=== PATIENT | female | born 1990 | race Caucasian/White ===

== ENCOUNTER 2018-09-30 19:52 | Emergency (ER) | payer MEDICAID ==
--- NOTE | 2018-09-30 20:29 | EDM.PDOC ---
ED HPI GENERAL MEDICAL PROBLEM - General Chief Complaint: Head Injury Stated Complaint: PASSED OUT,FELL DOWN STAIRS Time Seen by Provider: 09/30/18 20:19 Source of Information: Reports: Patient, Family, RN Notes Reviewed History Limitations: Reports: No Limitations - History of Present Illness INITIAL COMMENTS - FREE TEXT/NARRATIVE: 28-year-old female presents emergency department today complaint of syncopal event, she was seated at the stop the stairs, stood up and felt lightheaded and fell down the stairs landing on her chin. Witnesses say following this event she had shaking both upper and lower extremities was confused for a short time or regaining awareness. At this time she complains of jaw and having a headache. She has no family history no personal history of seizure like activity headache Pain Score (Numeric/FACES): 3 - Related Data Allergies Allergy/AdvReac Type Severity Reaction Status Date / Time No Known Allergies Allergy Verified 09/30/18 20:02 Home Meds: Home Meds NK [No Known Home Meds] 09/30/18 [History] Past Medical History HEENT History: Reports: Impaired Vision Cardiovascular History: Reports: Syncope [employer]ENDANT History: Reports: - Infectious Disease History Infectious Disease History: Reports: Chicken Pox - Past Surgical History HEENT Surgical History: Reports: Oral Surgery GI Surgical History: Reports: Cholecystectomy Female Surgical History: Reports: Section Social & Family History - Tobacco Use Smoking Status *Q: Never Smoker - Caffeine Use Caffeine Use: Reports: Coffee, Soda - Recreational Drug Use Recreational Drug Use: No ED ROS GENERAL - Review of Systems Review Of Systems: See Below Constitutional: Reports: No Symptoms HEENT: Reports: No Symptoms Respiratory: Reports: No Symptoms Cardiovascular: Reports: Syncope GI/Abdominal: Reports: No Symptoms Musculoskeletal: Reports: No Symptoms Skin: Reports: No Symptoms Neurological: Reports: Headache ED EXAM, HEAD INJURY - Physical Exam Exam: See Below Text/Narrative:: General: Female, not in any distress, alert and oriented x3 HEENT: head is slight erythema is appreciated on the right side of the chin normocephalic, eyes pupils equal round reactive to light, sclera clear no conjunctivitis appreciated extraocular eye movements intact. Ears tympanic membranes clear and dorantes landmarks and light reflex are present bilaterally canals are clear. Nose no septal deviation, nares are clear, no blood present. Mouth mucosa is moist and pink no erythema or exudate noted in soft palate, tongue is midline uvula is midline, dentition is intact. Neck: Supple no thyromegaly no tracheal deviation. Nodes: Cervical nodes subclavicular nodes nontender no palpable lymphadenopathy noted. NO posterior midline C-spine tenderness NO evidence of intoxication GCS > 14 No focal neurological deficit NO distracting injury Lungs: clear to auscultation bilaterally with symmetrical respirations, no adventitious noise appreciated. CV: Regular rate and rhythm S1 and S2 appreciated no murmurs rubs or gallops noted. Abdomen: Soft, nontender, no palpable masses or organomegaly appreciated, no distention no guarding bowel sounds are present, . Neuro: Cranial nerves II test with pupillary light reflex 4 mm to 2 mm bilaterally, CN III test pupillary constriction, limited elevation and eye abduction bilaterally, CN IV downward movement of eyes bilaterally, CN V good jaw movement, CN lateral deviation of the eyes bilaterally to finger movement , CN VII symmetrical smile shows teeth without difficulty, CN VIII pass finger rub to ears bilaterally, CN IX adequate voice and tone, CN X adequate voice and tone no difficulty swallowing, CN XI can shrug shoulders without difficulty, CN XII can stick tongue out without difficulty, cranial nerves II to XII intact as tested, Skin: Warm and dry, intact Extremities: No lower extremity edema appreciated, . Course - Vital Signs Last Recorded V/S: Last Vital Signs Temp 96.7 F 09/30/18 20:08 Pulse 77 09/30/18 20:08 Resp 15 09/30/18 20:08 BP 134/70 09/30/18 20:08 Pulse Ox 98 09/30/18 20:08 - Orders/Labs/Meds Orders: Active Orders 24 hr Category Date Time Status EKG Documentation Completion [RC] ASDIRECTED Care 09/30/18 20:26 Active EKG 12 Lead [EK] Stat Ther 09/30/18 20:25 Ordered Departure - Departure Time of Disposition: 23:02 Disposition: Home, Self-Care 01 Condition: Fair Clinical Impression: Head injury Qualifiers: Encounter type: initial encounter Qualified Code(s): S09.90XA - Unspecified injury of head, initial encounter - Discharge Information Referrals: PCP,None [Primary Care Provider] - Forms: ED Department Discharge Additional Instructions: Use Tylenol or Motrin as needed for pain control, Please followup with your primary care provider in 3-5 days if not better, please call return to the emergency department with worsening of symptoms. - My Orders Last 24 Hours: My Active Orders 09/30/18 20:25 EKG 12 Lead [EK] Stat 09/30/18 20:26 EKG Documentation Completion [RC] ASDIRECTED - Assessment/Plan Last 24 Hours: My Active Orders 09/30/18 20:25 EKG 12 Lead [EK] Stat 09/30/18 20:26 EKG Documentation Completion [RC] ASDIRECTED Plan: Assessment Acuity = acute Site and laterality = head injury with syncopal event Etiology = unknown etiology Manifestations = none Location of injury = Home Lab values = CT scan and maxillofacial bones and head negative for any acute process Plan I did review films with her she is, follow-up with her primary care in the next 5-7 days for reevaluation This note was dictated using [employer] voice recognition software please call with any questions on syntax or grammar.
--- NOTE | 2018-09-30 21:46 | CRLCT ---
INDICATION: Head injury from trauma, fall, syncope TECHNIQUE: CT Head without i.v. contrast. COMPARISON: None FINDINGS: CSF space: The ventricles are normal for age. Brain: No evidence of mass, acute infarction or hemorrhage is seen. No mass-effect or midline shift is seen. The brain parenchyma is otherwise normal in appearance with preservation of the dorantes-white matter junction. Calvarium: The visualized paranasal sinuses are well aerated. The mastoid air cells are clear. The visualized orbits are grossly unremarkable. The calvarium is unremarkable in appearance with no fractures identified. IMPRESSION: 1. No evidence of acute infarction, intracranial hemorrhage, or mass-effect seen. Please note that all CT scans at this facility use dose modulation, iterative reconstruction, and/or weight-based dosing when appropriate to reduce radiation dose to as low as reasonably achievable. Dictated by: Matti Carrillo MD @ 09/30/2018 21:45:38 (Electronically Signed)
--- NOTE | 2018-09-30 21:50 | CRLCT ---
INDICATION: Fall, jaw face pain TECHNIQUE: CT maxillofacial without i.v. contrast. Coronal and sagittal reformats were obtained. COMPARISON: None FINDINGS: Bone: No acute fractures or aggressive bone lesions are identified. Joint: The temporomandibular joints are unremarkable in appearance. Sinus: Moderate mucosal thickening seen in the left maxillary sinus. The remainder the paranasal sinuses are well aerated. The ostiomeatal units are patent. The nasal turbinates are normal. The nasal septum is midline and intact. Orbit: The visualized orbits are grossly unremarkable. Soft tissue: Unremarkable. IMPRESSION: 1. No acute osseous injuries or abnormalities are seen. Dictated by Matti Carrillo MD @ 09/30/2018 9:48:51 PM Please note that all CT scans at this facility use dose modulation, iterative reconstruction, and/or weight-based dosing when appropriate to reduce radiation dose to as low as reasonably achievable. Dictated by: Matti Carrillo MD @ 09/30/2018 21:48:57 (Electronically Signed)
== END 2018-09-30 23:55 | disposition home or self-care (01) ==
LOC: JP.ED 19:52
DX: S09.90XA Unspecified injury of head, initial encounter (principal); R55 Syncope and collapse; W10.9XXA Fall (on) (from) unspecified stairs and steps, initial encounter
CPT/HCPCS: 70450; 70486; 93005; 93010; 99284; 99284-25

== ENCOUNTER 2024-08-02 16:33 | Emergency (ER) | payer MEDICAID | END 2024-08-02 17:20 | disposition home or self-care (01) | LOC: JP.ED 16:33 | DX: H60.502 Unspecified acute noninfective otitis externa, left ear (principal); Z90.49 Acquired absence of other specified parts of digestive tract | CPT/HCPCS: 99282 ==